=== PATIENT | male | born 1990 | race Caucasian/White ===

== ENCOUNTER 2019-11-14 13:15 | Emergency (ER) | payer MEDICAID ==
[~2019-11-14] VITALS: Ht 149.9 cm; Wt 72.0 kg
[2019-11-14 16:02] VITALS: BP 122/89
== END 2019-11-14 16:03 | disposition home or self-care (01) ==
LOC: ER 13:15
DX: J11.1 Influenza due to unidentified influenza virus with other respiratory manifestations (principal)
CPT/HCPCS: 99281